=== PATIENT | male | born 1995 | race American Indian/Alaskan Native ===

== ENCOUNTER 2021-07-14 08:55 | Emergency (ER) | payer SELFPAY ==
--- NOTE | 2021-07-14 11:07 | Emergency Department Report ---
ED General Adult HPI - General Chief complaint: Back Pain/Injury Stated complaint: BACK INJURY Time Seen by Provider: 07/14/21 10:16 Source: patient Mode of arrival: Ambulatory Limitations: No Limitations - History of Present Illness Initial comments: 26-year-old male patient presents with complaints of right lower back pain today. Patient states during training today, he pulled a muscle in his right lower back while doing sit ups and then again while running. He rates his current pain as a 4/10 in severity and states with some range of motion and it increases to 9/10 in severity. Patient states history of sciatic nerve irritation due to a cracked bone in his lower back. He reports his symptoms are similar today and feel like his normal flareup. Patient states he normally takes muscle relaxers for a few days and his symptoms resolved. He denies any new loss of bladder/bowel control, numbness/tingling/weakness in his limbs, or difficulty with ambulation. No chronic steroid use or history of cancer per patient. - Related Data Previous Rx's Medication Instructions Recorded Last Taken Type Cyclobenzaprine [Flexeril 10 MG 10 mg PO TID PRN #20 tab 07/14/21 Unknown Rx TAB] ED Review of Systems ROS: Stated complaint: BACK INJURY Other details as noted in HPI Constitutional: denies: fever, malaise Gastrointestinal: denies: abdominal pain, nausea, vomiting, hematochezia Genitourinary: denies: frequency, hematuria Musculoskeletal: back pain Neurological: denies: numbness, paresthesias ED Past Medical Hx - Past Medical History Previous Medical History?: Yes Additional medical history: chronic back pain/injury - Medications Home Medications: Home Medications Medication Instructions Recorded Confirmed Last Taken Type Cyclobenzaprine [Flexeril 10 MG 10 mg PO TID PRN #20 tab 07/14/21 Unknown Rx TAB] ED Physical Exam - General Limitations: No Limitations General appearance: alert, in no apparent distress, obese - Head Head exam: Present: atraumatic, normocephalic - Eye Eye exam: Present: normal appearance - Respiratory Respiratory exam: Absent: respiratory distress - Cardiovascular Cardiovascular Exam: Present: regular rate - GI/Abdominal GI/Abdominal exam: Present: soft. Absent: tenderness - Back Exam Back exam: Present: full ROM, tenderness (Mild tenderness to palpation of the right lower paraspinal and latissimus dorsi muscles without obvious deformity noted). Absent: CVA tenderness (R), vertebral tenderness - Expanded Back Exam Expanded Back exam: Absent: saddle anesthesia Back exam: Sciatic Notch Tenderness: Right - Neurological Exam Neurological exam: Present: alert, oriented X3. Absent: normal gait (Mildly antalgic), motor sensory deficit - Psychiatric Psychiatric exam: Present: normal affect, normal mood - Skin Skin exam: Present: warm, dry, intact, normal color. Absent: rash ED Course Vital Signs 07/14/21 09:12 Temperature 98.5 F Pulse Rate 71 Respiratory 16 Rate Blood Pressure 134/81 [Right] O2 Sat by Pulse 97 Oximetry ED Medical Decision Making - Medical Decision Making 26-year-old male patient presents with complaints of right lower back pain today. Patient states during training today, he pulled a muscle in his right lower back while doing sit ups and then again while running. He rates his current pain as a 4/10 in severity and states with some range of motion and it increases to 9/10 in severity. Patient states history of sciatic nerve irritation due to a cracked bone in his lower back. He reports his symptoms are similar today and feel like his normal flareup. Patient states he normally takes muscle relaxers for a few days and his symptoms resolved. He denies any new loss of bladder/bowel control, numbness/tingling/weakness in his limbs, or difficulty with ambulation. No chronic steroid use or history of cancer per patient. Will treat for right sciatic nerve flare and muscle strain with Flexeril. Patient states he will take OTC NSAIDs as needed. Also recommend icing and stretching. He is to follow-up with his primary care doctor in 3 to 5 days. Referral was given for marketing development specialist as needed. Discussed in detail signs and symptoms that should prompt immediate return to ED with patient who verbalizes understanding Critical care attestation.: If time is entered above; I have spent that time in minutes in the direct care of this critically ill patient, excluding procedure time. ED Disposition Clinical Impression: Acute right-sided back pain with sciatica Disposition: HOME / SELF CARE / HOMELESS Is pt being admited?: No Condition: Stable Instructions: Sciatica Prescriptions: Cyclobenzaprine [Flexeril 10 MG TAB] 10 mg PO TID PRN #20 tab PRN Reason: Muscle Spasm Referrals: PRIMARY CARE, [Primary Care Provider] - 3-5 Days [facility] [Provider Group] - as needed [facility] [Provider Group] - as needed
[2021-07-14 11:17] VITALS: BP 132/76
== END 2021-07-14 11:17 | disposition home or self-care (01) ==
LOC: ED 08:55
DX: M54.41 Lumbago with sciatica, right side (principal)
CPT/HCPCS: 99282